=== PATIENT | male | born 1975 | race Caucasian/White ===

== ENCOUNTER → 2017-07-04 | Outpatient (CLI) | payer OTHER ==
[~2017-07-04] MED LIST: "\\\"BLOOD PRESSURE MED\\\""; AMOX500 PO; AZIT250 PO; Amoxicillin500 MG PO; CALCA500CH; CHLORHEXIDINE FL1 ML MC; CLIN150 PO; CYCL10; CYCL10 PO; Citrate Of Mag300 ML PO; DOCU100; DULO30 PO; Dulcolax5 MG PO; ERGO50000 PO; FLAX; GUAPHELA PO; Golytely Solu4000 ML PO; HYDACE5 PO; HYDGUAL120 PO; HYDR-86; IBUP800 PO; LIDO2TG30 TOP; LORTAB 10 MG-3473 ML PO; NAPR500 PO; NEOPOLHCSU OT; OXYACE5T PO; PROM25 PO; PROP10 PO; Penicillin250 MG/5 M PO; RANI150; RXANTBENOT AU; RXHYDACE PO; TRAM50 PO
== END ==
LOC: LAB 18:07
DX: L08.9 Local infection of the skin and subcutaneous tissue, unspecified (principal)
CPT/HCPCS: 87070; 87147; 87205

== ENCOUNTER → 2018-08-28 | Outpatient (CLI) | payer OTHER | END | disposition home or self-care (01) | LOC: LAB SHORT 18:28 → LAB 18:28 | DX: N39.0 Urinary tract infection, site not specified (principal); R31.9 Hematuria, unspecified | CPT/HCPCS: 87077; 87086; 87186 ==

== ENCOUNTER 2018-12-21 02:11 | Emergency (ER) | payer OTHER ==
[~2018-12-21] VITALS: Ht 175.3 cm; Wt 68.0 kg
[2018-12-21] MEDS ORDERED: ERYT1OIN BOTHEYES (03:26)
== END 2018-12-21 03:45 | disposition home or self-care (01) ==
LOC: ER 02:11
DX: H10.9 Unspecified conjunctivitis (principal); I10 Essential (primary) hypertension; J45.909 Unspecified asthma, uncomplicated; F17.200 Nicotine dependence, unspecified, uncomplicated
CPT/HCPCS: 99282

== ENCOUNTER 2018-12-28 12:25 | Inpatient (IN) | payer OTHER ==
[~2018-12-28] VITALS: Ht 175.3 cm; Wt 70.5 kg
[~2018-12-28 12:25] MED LIST changes: +ERYT1OIN BOTHEYES
[2018-12-28 12:47] LABS: BASOPHILS ABSOLUTE AUTO 0.04 K/mm3 (0.00-0.23); BASOPHILS PERCENT AUTO 1 % (0-2); EOSINOPHILS ABSOLUTE AUTO 0.18 K/mm3 (0.00-0.68); EOSINOPHILS PERCENT AUTO 3 % (0-6); Hematocrit 48.9 % (37.0-53.0); Hemoglobin 15.5 g/dL (13.5-17.5); IMMATURE GRAN ABSOLUTE AUTO 0.01 K/mm3 (0.00-0.10); IMMATURE GRAN PERCENT AUTO 0 % (0-1); LYMPHOCYTES ABSOLUTE AUTO 1.42 K/mm3 (0.84-5.20); LYMPHOCYTES PERCENT AUTO 23 % (21-46); MONOCYTES ABSOLUTE AUTO 0.52 K/mm3 (0.16-1.47); MONOCYTES PERCENT AUTO 9 % (4-13); Mean Corpuscular HGB 30.8 pg (26.0-34.0); Mean Corpuscular HGB Conc 31.7 g/dL (31.5-36.5); Mean Corpuscular Volume 97 fL (80-100); Mean Platelet Volume 12.2 fL (9.1-12.4); NEUTROPHILS ABSOLUTE AUTO 3.95 K/mm3 (1.96-9.15); NEUTROPHILS PERCENT AUTO 65 % (41-73); Platelet Count 151 K/mm3 (150-400); RDW Coefficient Variation 12.8 % (11.7-14.2); Red Blood Cell Count 5.04 M/mm3 (4.30-5.90); White Blood Cell Count 6.12 K/mm3 (4.00-11.30)
[2018-12-28 13:21] LABS: Ethanol (Alcohol), Blood, Med <3 mg/dL; Salicylate <1.7 mg/dL (2.8-20.0)
[2018-12-28 13:24] LABS: Acetaminophen, Random <2.0 ug/mL (10.0-30.0); Alanine Aminotransfer (ALT/SGP 34 U/L (12-78); Albumin, Blood 3.5 g/dL (3.4-5.0); Albumin/Globulin Ratio 1.2 (0.8-1.8); Alk Phos 70 U/L (50-136); Anion Gap 8 mmol/L (6-16); Aspartate Aminotrans (AST/SGOT 26 U/L (12-37); Bilirubin, Total 0.6 mg/dL (0.1-1.0); Blood Urea Nitrogen 17 mg/dL (8-24); CO2, Blood 26 mmol/L (21-32); Calcium, Blood 8.5 mg/dL (8.5-10.1); Chloride, Blood 107 mmol/L (98-108); Creatinine, Blood 1.06 mg/dL (0.60-1.20); Globulin, Blood 2.9 g/dL (2.2-4.0); Glomerular Filtration Rate >60 (60-); Glucose, Blood 107 mg/dL (70-99); Potassium, Blood 3.5 mmol/L (3.5-5.5); Sodium, Blood 141 mmol/L (136-145); Total Protein, Blood 6.4 g/dL (6.4-8.2)
[2018-12-28 13:54] LABS: U Amphetamine Screen DETECTED; U Barbituate Screen Not Detected; U Benzodiazapine Screen Not Detected; U Buprenorphine Screen Not Detected; U Cannabinoids Screen DETECTED; U Cocaine Screen Not Detected; U Methadone Screen Not Detected; U Methamphetamine Screen DETECTED; U Opiates Screen Not Detected; U Oxycodone Screen Not Detected; U Phencyclidine Screen Not Detected; U Propoxyphene Screen Not Detected
--- NOTE | 2018-12-28 16:25 | NUR ---
INITIAL ASSESSMENT PATIENT ARRIVED TO UNIT AT 1610. PATIENT RESPONSIVE TO PAIN WITH GROSS MOVEMENT OF EXTREMITIES. PATIENT HAS + GAG, COUGH AND SWALLOW NOTED. R PUPIL SLUGGISH AND APPEARS SENSITIVE TO LIGHT. PATIENT'S MOTHER REPORTS THAT PATIENT HAD OLD R INJURY FROM A BULL WHIP AND THAT IT IS NORMALLY VERY SENSITIVE TO LIGHT. PATIENT HAS NO SIGNS OF PAIN. PATIENT AFEBRILE. PATIENT SATTING 90% AND GREATER ON RA. LUNGS CLEAR THROUGHOUT. PATIENT IN SB TO SR, HR 50S TO 60S. BP STABLE. PATIENT'S MOTHER REPORTS THAT PATIENT DIAGNOSED WITH MEGACOLON AT VERY YOUNG AGE AND HAS HAD PROBLEMS WITH HIS WHOLE LIFE. PATIENT'S GF REPORTS THAT PATIENT USUALLY ONLY HAS A COUPLE OF BMS PER MONTH WITH THE LAST BEING AROUND THE FIRST OF THIS MONTH. MOTHER ALSO REPORTS THAT PATIENT HAS SOME PROBLEMS WITH CHEWING AND SWALLOWING BECAUSE JAW DOES NOT ALIGN FROM HAVING HIS JAW BROKE. PATIENT HAS NOT VOIDED SINCE ARRIVING. RECEIVED REPORT THAT PATIENT HAD QUIROS IN ER BUT WAS VOIDING AROUND AND NOT HAPPY ABOUT SO ER REMOVED AND PATIENT ABLE TO USE URINAL WELL WITH ASSISTANCE. PATIENT HAS SCARS TO ARMS AND NECK. 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 LR INFUSING AT 125 MLS/ HOUR. ADMIT DATA THAT WAS COMPLETED WAS DONE SO WITH RECORDS AND REPORT FROM BOTH PATIENT'S GF AND ON PHONE WITH MOTHER. BED LOW, CALL LIGHT IN REACH. WILL CONTINUE TO MONITOR PATIENT FREQUENTLY THROUGHOUT SHIFT.
--- NOTE | 2018-12-28 17:32 | NUR ---
DR. ANTOINE NOTIFIED THAT PATIENT HAS BECOME HYPOTENSIVE. BP 84/54, MAP OF 64, HR IN THE 50S. ORDERED FOR 500 CC BOLUS. WILL CONTINUE TO MONITOR.
[2018-12-28 17:51] LABS: Base Excess Venous 2.3 mmol/L; PCO2 Venous 43.8 mmHg (38-42); PO2 Venous 99.8 mmHg (38-42)
--- NOTE | 2018-12-28 19:00 | NUR ---
ASSUMED CARE ASSUMED CARE OF PATIENT. SLEEPING WHEN UNDISTURBED. ROUSES TO VERBAL STIMULI. SLOW VERBAL RESPONSE AND SPEECH IS SLURRED. DOESN'T ANSWER QUESTIONS AT THIS TIME. ASKED FOR NOSE TO BE SCRATCHED. REPOSITIONS SELF IN BED. BILATERAL SOFT WRIST RESTRAINT IN PLACE. PUPILS 4MM. RIGHT PUPIL IS SLUGGISH- PT'S GIRLFRIEND STATES THAT THIS IS FROM AN OLD EYE INJURY. RIGHT EYE IS SENSITIVE TO LIGHT. LEFT PUPIL BRISK. MONITOR SHOWS SB, RATE 50s. BP STABLE. AFEBRILE. RESPIRATIONS EVEN AND UNLABORED. RA SATS STABLE. LR INFUSING @ 125CC/HR PER ORDER. SEE SHIFT ASSESSMENT FOR FULL ASSESSMENT.
--- NOTE | 2018-12-28 19:30 | NUR ---
SHIFT SUMMARY PATIENT REMAINED SLEEPING SINCE BEING ADMITTED. PATIENT CONTINUES TO RESPOND TO PAIN AND ADEQUATELY PROTECT AIRWAY. PATIENT HAS NOT HAD ANY SIGNS OF PAIN. PATIENT HAS REMAINED SATTING WELL ON RA. PATIENT REMAINS SB TO SR, HR HIGH 40S TO 70S. BP STABLE WHEN FIRST ARRIVED, ALTHOUGH SBP DECREASED TO 80S. DR. ANTOINE INFORMED. PATIENT GIVEN OT 500 CC NS BOLUS AND BP IMPROVED. PATIENT DID NOT HAVE BM OR VOID THIS SHIFT. NO CHANGE IN SKIN. LR REMAINS INFUSING AT 125 MLS/ HOUR. GF AND FRIEND AT BEDSIDE. BED LOW, CALL LIGHT IN REACH. REPORT HAS BEEN GIVEN TO ASSUMING CONTROL PANEL ASSEMBLER NURSE, YESENIA PALUMBO.
--- NOTE | 2018-12-29 02:30 | NUR ---
O2 PT SLEEPING. SHORT PERIODS OF SLEEP APNEA NOTED WITH SATS DECREASING TO MID-70s. ROUSES EASILY TO STIMULI AND SATS MID-90s WHEN AWAKE. O2 ON AT 2LNC AT THIS TIME.
--- NOTE | 2018-12-29 02:59 | NUR ---
AWAKE PT IS AWAKE AND IS ASKING FOR WATER. ORIENTED TO SELF AND TO PLACE. SWALLOWED WATER WITHOUT DIFFICULTY. ATTEMPTED TO USE URINAL IN BED, BUT STATES THAT HE HAS TO STAND TO URINATE. STOOD AT BEDSIDE WITH STAND-BY ASSIST TO VOID- 400CC ZULMA URINE. WHEN QUESTIONED ABOUT WHAT MEDICATIONS HE TOOK, PT STATES THAT HE TOOK "A WHOLE BOX OF SLEEP AID." UNABLE TO RECALL NAME OF MEDICATION AT THIS TIME.
[2018-12-29 03:31] LABS: BASOPHILS ABSOLUTE AUTO 0.02 K/mm3 (0.00-0.23); BASOPHILS PERCENT AUTO 0 % (0-2); EOSINOPHILS PERCENT AUTO 2 % (0-6); Hematocrit 42.6 % (37.0-53.0); Hemoglobin 13.7 g/dL (13.5-17.5); IMMATURE GRAN ABSOLUTE AUTO 0.01 K/mm3 (0.00-0.10); IMMATURE GRAN PERCENT AUTO 0 % (0-1); LYMPHOCYTES ABSOLUTE AUTO 1.36 K/mm3 (0.84-5.20); LYMPHOCYTES PERCENT AUTO 29 % (21-46); MONOCYTES ABSOLUTE AUTO 0.41 K/mm3 (0.16-1.47); MONOCYTES PERCENT AUTO 9 % (4-13); Mean Corpuscular HGB 31.6 pg (26.0-34.0); Mean Corpuscular HGB Conc 32.2 g/dL (31.5-36.5); Mean Corpuscular Volume 98 fL (80-100); Mean Platelet Volume 12.7 fL (9.1-12.4); NEUTROPHILS ABSOLUTE AUTO 2.83 K/mm3 (1.96-9.15); NEUTROPHILS PERCENT AUTO 60 % (41-73); Platelet Count 142 K/mm3 (150-400); RDW Coefficient Variation 12.8 % (11.7-14.2); Red Blood Cell Count 4.34 M/mm3 (4.30-5.90); White Blood Cell Count 4.73 K/mm3 (4.00-11.30)
[2018-12-29 03:48] LABS: Anion Gap 5 mmol/L (6-16); Blood Urea Nitrogen 13 mg/dL (8-24); Bun/Creatinine Ratio 13.1 (12.0-20.0); CO2, Blood 29 mmol/L (21-32); Calcium, Blood 8.2 mg/dL (8.5-10.1); Chloride, Blood 110 mmol/L (98-108); Creatinine, Blood 0.99 mg/dL (0.60-1.20); Glomerular Filtration Rate >60 (60-); Glucose, Blood 88 mg/dL (70-99); Potassium, Blood 3.6 mmol/L (3.5-5.5); Sodium, Blood 144 mmol/L (136-145)
--- NOTE | 2018-12-29 06:41 | NUR ---
SHIFT SUMMARY NO ACUTE CHANGES. CONTINUES TO SLEEP WHEN UNDISTURBED, BUT ROUSES TO STIMULI AND OCCASIONALLY ROUSES SPONTANEOUSLY. ORIENTED TO SELF, PLACE, EVENTS, AND MONTH/YEAR. COOPERATIVE WITH CARE. SPEECH IS STILL SLIGHTLY SLURRED. REPOSITIONS SELF IN BED WITHOUT DIFFICULTY. STOOD AT BEDSIDE TO VOID X 1 WITHOUT DIFFICULTY. 02 2L NC WHILE ASLEEP. RESPIRATIONS SHALLOW. OCCASIONAL MOIST NPC. MONITOR SHOWS SB-SR, RATE MID-30s TO 70s. OCCASIONAL NON-SUSTAINED JUNCTIONAL RHYTHM NOTED. MONITORING QT INTERVAL- PROLONGED. BP STABLE. NPO. VOIDED ZULMA URINE. LR INFUSING @ 125CC/HR. WILL REPORT TO DAY SHIFT RN WHEN AVAILABLE.
--- NOTE | 2018-12-29 07:15 | NUR ---
AM ASSESSMENT: PT IS VERY DROWSY UPON ARRIVAL OF THIS RN. PT AWAKENS EASILY AND ANSWERS QUESTIONS SLOWLY BUT APPROPRIATELY WITH MUMBLED SPEECH, THAT AT TIMES IS DIFFICULT TO UNDERSTAND. PT CAN FOLLOW SIMPLE COMMANDS. WILL COMPLETE SUICIDE ASSESSMENT WHEN PT IS MORE ALERT. LUNGS ARE CLEAR BUT DIMINISHED T/O BILATERALLY. SATS >90% ON 2L 02 VIA N/C. HR REGULAR, SB MID 40-50'S RANGE. BP STABLE. LR INFUSING @ 125ML/HR. ABD SOFT/FLAT/NON-TENDER TO PALPATION. BT'S HYPOACTIVE AT THIS TIME. PT REMAINS NPO, WILL DISCUSS STARTING DIET IF PT BECOMES MORE ALERT. -FULL CODE STATUS
--- NOTE | 2018-12-29 08:06 | NUR ---
DR ANTOINE IN TO ASSESS PT. UPDATED ON PT'S STATUS. ONCE PT IS MORE AWAKE, WILL COMPLETE THE SUICIDE ASSESSMENT SCALE WITH PT AND ATTEPT TO RECONCILE PT'S MEDS, THEY WERE UNABLE TO DO THIS WITH THE PT/GIRLFRIEND.
--- NOTE | 2018-12-29 08:10 | NUR ---
CALLED AND REQUESTED A MEDICATION LIST FROM [facility]. AWAITING FAX.
--- NOTE | 2018-12-29 12:38 | NUR ---
Spiritual care visit conducted. Patient is sleepy but still able to engage in conversation minimally. Patient denied having any pain and stated that he is doing"alright" emotioanlly. Patient did not repond to questions of any depth but did agree to having me say a prayer for him, which I gladly did. Patient voiced appreciation for the prayer. I will continue to remain available to patient and family.
--- NOTE | 2018-12-29 14:36 | NUR ---
REPORTED OFF TO SAMINA COOLEY WHOM WILL ASSUME CARE OF THIS PT ONCE HE IS TRANSFERRED TO HIS NEW .
--- NOTE | 2018-12-29 15:15 | NUR ---
PT TRANSFERRED VIA BED BY THIS RN TO [facility]. ALL BELONGINGS, PT CHART SENT WITH PT TO NEW ROOM. PT MOVED TO NEW BED. SANDOVAL AND YASIR RN AT BEDSIDE TO ORIENT PT TO NEW . THIS RN PLACED CALL LIGHT WITHIN REACH.
--- NOTE | 2018-12-29 15:45 | NUR ---
PATIENT TRANSFER THE PATIENT WAS TRANSFERRED TO THE MEDICAL FLOOR, ROOM #362, AFTER REPORTED WAS RECEIVED FROM THE PATIENT'S NURSE IN ICU. THE PATIENT WAS SETTLED IN AND HAD HIS VITAL TAKEN. THE PATIENT SEEMED VERY DROSEY, WILL CONTINUE TO MONITOR.
--- NOTE | 2018-12-30 17:40 | NUR ---
PATIENT SLEPT THE MORING AND WOKE FOR LUNCH. GIRLFRIEND IN ROOM THROUGH OUT THE SHIFT. NO C/O OF PAIN, SOB, NV. HE IS MORE AWAKE THAN REPORTED FROM PREVIOUS SHIFT. HE GOES OUT TO SMOKE AND SLEEPS MOST OF THE DAY. PATIENT TOLD THIS NURSE HE HAD TAKEN AMBIEN BEFORE BEING ADMITTED. IV TO LEFT WRIST WAS PAINFUL AND REMOVED AFTER PATIENT REQUESTED IT. HE IS COMPLIANT AND FRIENDLY. NO CALLS FROM TELE REGARDING BRADYCARDIA.
--- NOTE | 2018-12-31 07:32 | NUR ---
Shift summary: Pt alert , oriented and appropriate last pm. Tolerating po well. Pt slept most of shift but easily arousable. Pt on telemetry- sinus rhythm per PCU.
--- NOTE | 2018-12-31 11:08 | NUR ---
1100 PATIENT TO DISCHARGE . IV REMOVED PRIOR . NO SS OF INFECTION NOTED. NURSE WENT OVER DC PAPERS WITH PATIENT AND GIRLFRIEND. PATIENT INSTRUCTED TO FOLLOW UP WITH DOCTOR AND TO AVOID METH. PATIENT WALKED OUT WITH GIRLFRIEND.
== END 2018-12-31 11:08 | disposition home or self-care (01) | DRG 917 ==
LOC: ER 12:25 → MEDS 15:03 → ICUE 15:03 → ICUW 15:03 → EDBD 15:03 → ICUE 15:39 → MEDS 12-29 15:24
PROVIDERS: Emergency Medicine; ADMIT Internal Medicine
DX: T50.901A Poisoning by unspecified drugs, medicaments and biological substances, accidental (unintentional), initial encounter (principal); G92 Toxic encephalopathy; Z59.0 Homelessness; F19.10 Other psychoactive substance abuse, uncomplicated; R00.1 Bradycardia, unspecified; Z87.828 Personal history of other (healed) physical injury and trauma; I10 Essential (primary) hypertension; J45.909 Unspecified asthma, uncomplicated; F17.210 Nicotine dependence, cigarettes, uncomplicated
CPT/HCPCS: 36415; 51702; 70450; 71045; 80048; 80053; 82803; 85025; 93005; 93010; 96361-59; 96374-59; 96375-59; 99285-25; G0480; J1630; J1650; J2310; J3411; J7030; J7040; J7120

== ENCOUNTER 2020-12-01 04:05 | Emergency (ER) | payer OTHER ==
[~2020-12-01] VITALS: Ht 175.3 cm; Wt 77.1 kg
[2020-12-01 04:48] LABS: BASOPHILS ABSOLUTE AUTO 0.05 K/mm3 (0.00-0.23); BASOPHILS PERCENT AUTO 1 % (0-2); EOSINOPHILS ABSOLUTE AUTO 0.19 K/mm3 (0.00-0.68); EOSINOPHILS PERCENT AUTO 2 % (0-6); Hemoglobin 19.2 g/dL (13.5-17.5); IMMATURE GRAN ABSOLUTE AUTO 0.03 K/mm3 (0.00-0.10); IMMATURE GRAN PERCENT AUTO 0 % (0-1); LYMPHOCYTES ABSOLUTE AUTO 1.43 K/mm3 (0.84-5.20); LYMPHOCYTES PERCENT AUTO 14 % (21-46); MONOCYTES ABSOLUTE AUTO 0.68 K/mm3 (0.16-1.47); MONOCYTES PERCENT AUTO 7 % (4-13); Mean Corpuscular HGB 31.6 pg (26.0-34.0); Mean Corpuscular HGB Conc 32.9 g/dL (31.5-36.5); Mean Corpuscular Volume 96 fL (80-100); Mean Platelet Volume 12.3 fL (9.1-12.4); NEUTROPHILS ABSOLUTE AUTO 7.66 K/mm3 (1.96-9.15); NEUTROPHILS PERCENT AUTO 76 % (41-73); Platelet Count 206 K/mm3 (150-400); RDW Standard Deviation 46.2 fL (35.1-46.3); Red Blood Cell Count 6.07 M/mm3 (4.30-5.90); White Blood Cell Count 10.04 K/mm3 (4.00-11.30)
[2020-12-01 04:53] LABS: Hematocrit 58.4 % (37.0-53.0)
[2020-12-01 05:07] LABS: Alanine Aminotransfer (ALT/SGP 53 U/L (12-78); Albumin/Globulin Ratio 0.8 (0.8-1.8); Alk Phos 83 U/L (50-136); Anion Gap 6 mmol/L (6-16); Aspartate Aminotrans (AST/SGOT 44 U/L (12-37); Bilirubin, Total 0.8 mg/dL (0.1-1.0); Blood Urea Nitrogen 13 mg/dL (8-24); Bun/Creatinine Ratio 14.5 (12.0-20.0); CO2, Blood 26 mmol/L (21-32); Calcium, Blood 9.9 mg/dL (8.5-10.1); Chloride, Blood 105 mmol/L (98-108); Creatinine, Blood 0.89 mg/dL (0.60-1.20); Ethanol (Alcohol), Blood, Med <3 mg/dL; Globulin, Blood 4.8 g/dL (2.2-4.0); Glomerular Filtration Rate >60 (60-); Glucose, Blood 91 mg/dL (70-99); Potassium, Blood 3.9 mmol/L (3.5-5.5); Sodium, Blood 137 mmol/L (136-145); Total Protein, Blood 8.8 g/dL (6.4-8.2)
== END 2020-12-01 05:20 | disposition home or self-care (01) ==
LOC: ER 04:05
PROVIDERS: Student in an Organized Health Care Education/Training Program
DX: R11.2 Nausea with vomiting, unspecified (principal); I10 Essential (primary) hypertension; J45.909 Unspecified asthma, uncomplicated; F17.200 Nicotine dependence, unspecified, uncomplicated; Z91.040 Latex allergy status; Z59.0 Homelessness
CPT/HCPCS: 36415; 80053; 83690; 85025; 99284; G0480